=== PATIENT | female | born 1985 | race Asian ===

== ENCOUNTER → 2017-03-15 | Outpatient (CLI) | payer OTHER ==
[2017-03-15 15:27] LABS: PLATELET COUNT, AUTOMATED 228 K/uL (150-450)
--- NOTE | 2017-03-15 16:22 | RADIOLOGY IMAGING REPORT ---
FACILITY: [facility] PATIENT NAME: Kanwal Dill : 1985 MR: [id number] V: [id number] EXAM DATE: ORDERING PHYSICIAN: WOO BUSTILLO TECHNOLOGIST: Location: [facility] Patient: Kanwal Dill : 1985 Visit/Account:[id number] Date of Sevice: 03/15/2017 Technique: CERVICAL SPINE 2 OR 3 VIEW HISTORY: neck pain Comparison studies: None FINDINGS: There is no acute fracture. Straightening of the normal cervical lordosis is present likel y secondary to patient positioning or muscular spasm. The vertebral body heights and intervertebral disc spaces are maintained. Prevertebral soft tissues are normal. IMPRESSION: 1. No acute osseous process. Report Dictated By: Maurice Berry DO at 03/15/2017 4:17 PM Report E-Signed By: Maurice Berry DO at 03/15/2017 4:18 PM WSN:[id number]
== END ==
LOC: LAB 15:09
PROVIDERS: ATTEND Internal Medicine
DX: M54.2 Cervicalgia (principal); B18.1 Chronic viral hepatitis B without delta-agent; R53.83 Other fatigue; R42 Dizziness and giddiness
CPT/HCPCS: 36415; 72040; 82040; 82247; 82310; 82374; 82435; 82565; 82947; 84075; 84132; 84155; 84295; 84443; 84450; 84460; 84520; 85025; 86706; 86707; 87340; 87350; 87517